=== PATIENT | female | born 1965 | race Caucasian/White ===

== ENCOUNTER → 2016-04-27 | Outpatient (CLI) | payer MEDICAID, OTHER ==
--- NOTE | 2016-04-27 13:57 | WOMENS IMAGING REPORT ---
EXAM DESCRIPTION: BILAT SCREENING MAMMO W/CAD COMPLETED DATE/TIME: 04/27/2016 8:37 am REASON FOR STUDY: Z12.31 Z12.31 ENCNTR SCREEN MAMMOGRAM FOR MALIGNANT NEOPLASM OF GAVIN COMPARISON: 2011 to 2014 TECHNIQUE: Standard craniocaudal and mediolateral oblique views of each breast recorded using digita l acquisition. LIMITATIONS: None. FINDINGS: No masses, calcifications or architectural distortion. No areas of suspicion. Read with the assistance of CAD. .[facility] - R2 Cenova Version 1.3 .[facility] - R2 Cenova Version 1.3 .[facility] - R2 Cenova Version 2.4 .[facility] [place] - R2 Cenova Version 2.4 .[facility] - R2 Marshmallow Machine Worker Version 9.2 BREAST DENSITY: b. There are scattered areas of fibroglandular density. BIRAD: 1 NEGATIVE RECOMMENDATION: ROUTINE SCREENING COMMENT: PATIENT NOTIFIED BY LETTER. The [employer] recommends an annual screening mammogram for women aged 40 years or over. Each patient will receive a reminder prior to the anniversary date of her mammogram. The [employer] (ACR) has developed recommendations for screening MRI of the breast s in certain patient populations, to be used in conjunction with mammography. Breast MRI surveillanc e may be appropriate for women with more than 20% lifetime risk of developing breast cancer as deter mined by genetic testing, significant family history of the disease, or history of mantle radiation f or Hodgkins Disease. ACR Practice Guidelines 2008. TECHNICAL DOCUMENTATION: FINDING NUMBER: (1) ASSESSMENT: (1) JOB ID: [id number] 1,2,3 [employer]- All Rights Reserved
== END ==
LOC: WI 07:39
PROVIDERS: ATTEND Nurse Practitioner Family
DX: Z12.31 Encounter for screening mammogram for malignant neoplasm of breast (principal)
CPT/HCPCS: 77067; G0202

== ENCOUNTER → 2018-02-08 | Outpatient (CLI) | payer MEDICAID, OTHER ==
--- NOTE | 2018-02-08 15:22 | WOMENS IMAGING REPORT ---
EXAM DESCRIPTION: BILAT SCREENING MAMMO W/CAD COMPLETED DATE/TIME: 02/08/2018 2:47 pm REASON FOR STUDY: ROUTINE SCREENING Z12.31 Z12.31 ENCNTR SCREEN MAMMOGRAM FOR MALIGNANT NEOPLASM OF GAVIN COMPARISON: 04/27/2016 and 02/22/2015. TECHNIQUE: Standard craniocaudal and mediolateral oblique views of each breast recorded using digita l acquisition. LIMITATIONS: None. FINDINGS: No masses, calcifications or architectural distortion. No areas of suspicion. Read with the assistance of CAD. .[facility] - R2 Cenova Version 1.3 .[facility] - R2 Cenova Version 1.3 .[facility] - R2 Cenova Version 2.4 .[facility] - R2 Cenova Version 2.4 .[facility] - R2 Cement Kiln Operator Version 9.2 IMPRESSION: NORMAL MAMMOGRAM. BIRADS 1. BREAST DENSITY: c. The breasts are heterogeneously dense, which may obscure small masses. BIRAD: 1 NEGATIVE RECOMMENDATION: ROUTINE SCREENING COMMENT: The patient has been notified of the results by letter per MQSA requirements. Additional no tification policies are in place for contacting patient with suspicious or incomplete findings. Quality ID #[id number]: The [employer] recommends an annual screening mammogram for women aged 40 years or over. This facility utilizes a reminder system to ensure that all patients receive reminder letters, and/or direct phone calls for appointments. This includes reminders for routine scr eening mammograms, diagnostic mammograms, or other Breast Imaging Interventions when appropriate. Th is patient will be placed in the appropriate reminder system. The [employer] (ACR) has developed recommendations for screening MRI of the breast s in certain patient populations, to be used in conjunction with mammography. Breast MRI surveillanc e may be appropriate for women with more than 20% lifetime risk of developing breast cancer as deter mined by genetic testing, significant family history of the disease, or history of mantle radiation f or Hodgkins Disease. ACR Practice Guidelines 2008. TECHNICAL DOCUMENTATION: FINDING NUMBER: (1) ASSESSMENT: (1) JOB ID: [id number] [employer]- All Rights Reserved Reading location - IP/workstation name: [email or web address]
== END ==
LOC: WI 14:31
PROVIDERS: ATTEND Family Medicine
DX: Z12.31 Encounter for screening mammogram for malignant neoplasm of breast (principal)
CPT/HCPCS: 77067

== ENCOUNTER 2018-04-15 15:46 | Emergency (ER) | payer OTHER ==
--- NOTE | 2018-04-15 17:09 | ER Document Report ---
ED Medical Screen (RME) - General Chief Complaint: Abscess Stated Complaint: VAGINAL PAIN Time Seen by Provider: 04/15/18 17:08 Mode of Arrival: Ambulatory Information source: Patient Notes: Patient complains of swelling to vaginal area that started yesterday. Patient denies any fever. I have greeted and performed a rapid initial assessment of this patient. A comprehensive ED assessment and evaluation of the patient, analysis of test results and completion of the medical decision making process will be conducted by additional ED providers. TRAVEL OUTSIDE OF THE [place] IN LAST 30 DAYS: No Past Medical History - Social History Chew tobacco use (# tins/day): No Frequency of alcohol use: None Drug Abuse: None Renal/ Medical History: Denies: Hx Peritoneal Dialysis Physical Exam - Vital signs Vitals: Temp Pulse Resp BP Pulse Ox 98.9 F 76 16 126/79 H 100 04/15/18 16:06 04/15/18 16:06 04/15/18 16:06 04/15/18 16:06 04/15/18 16:06 - General General appearance: Appears well, Alert In distress: None Course - Vital Signs Vital signs: Temp Pulse Resp BP Pulse Ox 98.9 F 76 16 126/79 H 100 04/15/18 16:06 04/15/18 16:06 04/15/18 16:06 04/15/18 16:06 04/15/18 16:06 Doctor's Discharge - Discharge Referrals: REJI LEMUS MD [Primary Care Provider] - Follow up as needed
--- NOTE | 2018-04-15 22:24 | ER Document Report ---
ED General - General Mode of Arrival: Ambulatory TRAVEL OUTSIDE OF THE [place] IN LAST 30 DAYS: No - General Chief Complaint: Abscess Stated Complaint: VAGINAL PAIN Time Seen by Provider: 04/15/18 17:08 Notes: 48-year-old female presents to the emergency department with concern for swelling in her vaginal area. She states that she noticed yesterday when going to the bathroom and it was felt spongy. She said it resolved last night but then it recurred this morning. While in the emergency department she said symptoms improved again. She states that she did have a recent illness over [place] for which she was coughing a lot and still has a residual cough. She is postmenopausal. She did note that she did have a little bit of bleeding. She complains of difficulty with urination and urgency. She complains of minor cramping. She complains of problems with a BM. She denies any fever, chills, shortness of breath, chest pain, abdominal pain. (MAURI GILES) - Related Data Allergies/Adverse Reactions: sulfamethoxazole [From ] Adverse Reaction (Verified 04/15/18 17:10) trimethoprim [From Decra] Adverse Reaction (Verified 04/15/18 17:10) Past Medical History - General Information source: Patient - Social History Smoking Status: Never Smoker Chew tobacco use (# tins/day): No Frequency of alcohol use: None Drug Abuse: None Family History: None Patient has suicidal ideation: No Patient has homicidal ideation: No Renal/ Medical History: Denies: Hx Peritoneal Dialysis Review of Systems - Review of Systems Constitutional: See HPI EENT: See HPI Cardiovascular: See HPI Gastrointestinal: See HPI Genitourinary: See HPI Female Genitourinary: See HPI Musculoskeletal: No symptoms reported Skin: No symptoms reported Hematologic/Lymphatic: No symptoms reported Neurological/Psychological: No symptoms reported Physical Exam - Vital signs Vitals: Temp Pulse Resp BP Pulse Ox 98.9 F 76 16 126/79 H 100 04/15/18 16:06 04/15/18 16:06 04/15/18 16:06 04/15/18 16:06 04/15/18 16:06 - Notes Notes: Patient requested female examiner. I requested for Dr. Florence to perform speculum exam. She agreed. Please see her note for details. (MAURI GILES) Course - Re-evaluation Re-evalutation: 04/15/18 22:25 52-year-old female with no past medical history presents for complaints of concerns for a growth at the opening of the vagina. That she noticed it yesterday after using the bathroom and that the symptoms partially resolved overnight. This morning she realized that it grew again and while she been sitting in the ER it has gone down. I asked Dr. Florence to perform pelvic exam as patient was uncomfortable with the male performing it. Per Dr. Florence, and obvious uterine prolapse was present. Plan is to discharge with referral to women's health. (MAURI GILES) 04/16/18 02:29 I personally evaluated the patient and agree with the treatment and disposition. (HERNANDO FLORENCE) - Vital Signs Vital signs: Temp Pulse Resp BP Pulse Ox 97.9 F 17 L 18 131/82 H 97 04/15/18 23:07 04/15/18 23:07 04/15/18 23:07 04/15/18 23:07 04/15/18 23:07 - Laboratory Laboratory results interpreted by me: 04/15/18 18:03 POC Glucose 65 L Discharge - Discharge Clinical Impression: Prolapsed uterus Condition: Stable Disposition: HOME, SELF-CARE Additional Instructions: Pelvic organ prolapse is a condition that only affects women. It happens when tissues that support the organs in the lower belly relax. These tissues are sometimes called the "pelvic floor." When they relax too much, the organs drop down and press against or bulge into the vagina. If the bladder bulges into the vagina, doctors call this problem "cystocele." If the rectum bulges into the vagina, they call it "rectocele." Uterine prolapse means the uterus has bulged into the vagina Some things can increase a woman's risk of having pelvic organ prolapse. They include , obesity, and older age. What are the symptoms of pelvic organ prolapse? Many women with this problem have no symptoms. But some women with pelvic organ prolapse have symptoms that include: -Fullness or pressure in the pelvis or vagina -An aching feeling in the pelvis -A bulge in the vagina or coming out of the vagina -Leaking urine when they laugh, cough, or sneeze -Needing to urinate all of a sudden When they use the toilet, some women need to press on the bulge in the vagina with a finger to get out all their urine or to finish a bowel movement. Is there anything I can do on my own to feel better? Yes. Some women feel better if they do pelvic muscle exercises. These exercises strengthen the muscles that control the flow of urine and bowel movements. They are also known as "Kegel" exercises. Your nurse or doctor can teach you how to do them or refer you to a physical therapist who specializes in pelvic floor problems. How is pelvic organ prolapse treated? Women who have no symptoms or who are not bothered by their symptoms do not need treatment. For women with symptoms that bother them, doctors suggest different treatments, including: -Pelvic floor muscle exercises Patients work with a physical therapist for 8 to 12 weeks to strengthen the pelvic muscles. -A vaginal pessary This device fits inside a woman's vagina to support the bladder and push it back into place. Pessaries come in different shapes and sizes. -Surgery A surgeon can move dropped organs back where they belong and strengt hen the tissues that keep them in place. Women should have this type of surgery only if they are done having children. Can pelvic organ prolapse be prevented? You can reduce your chances of pelvic organ prolapse if you: -Lose weight if you are overweight -Get treated for constipation if you are constipated -Avoid activities that require you to lift heavy things Referrals: REJI LEMUS MD [NO LOCAL MD] - Follow up as needed KYLE BELTRAN MD [ACTIVE STAFF] - Follow up as needed
[2018-04-15 23:09] VITALS: BP 131/82
== END 2018-04-15 23:10 | disposition home or self-care (01) ==
LOC: ER 15:46
DX: N81.4 Uterovaginal prolapse, unspecified (principal); R05 Cough; R39.15 Urgency of urination; R58 Hemorrhage, not elsewhere classified
CPT/HCPCS: 82962; 99283

== ENCOUNTER → 2019-04-03 | Outpatient (CLI) | payer MEDICAID, OTHER ==
--- NOTE | 2019-04-03 15:19 | WOMENS IMAGING REPORT ---
EXAM DESCRIPTION: BILAT SCREENING MAMMO W/CAD COMPLETED DATE/TIME: 04/03/2019 10:09 am REASON FOR STUDY: Z12.31 SCREENING MAMMO Z12.31 ENCNTR SCREEN MAMMOGRAM FOR MALIGNANT NEOPLASM OF B RE Z78.0 ASYMPTOMATIC MENOPAUSAL STATE COMPARISON: Multiple since 2011 EXAM PARAMETERS: Standard craniocaudal and mediolateral oblique views of each breast recorded using digital acquisition. Read with the assistance of CAD. .[facility] - [employer] Solid [employer]ellant Processor Version 9.2 LIMITATIONS: None. FINDINGS: No suspicious masses, suspicious calcifications or architectural distortion. No areas of c oncern. IMPRESSION: Negative MAMMOGRAM. BIRADS 1 BREAST DENSITY: c. The breasts are heterogeneously dense, which may obscure small masses. BIRAD: ASSESSMENT: 1 NEGATIVE RECOMMENDATION: ROUTINE SCREENING Please continue yearly bilateral screening mammography/tomosynthesis in March 2020 COMMENT: The patient has been notified of the results by letter per MQSA requirements. Additional no tification policies are in place for contacting patient with suspicious or incomplete findings. Quality ID #[id number]: The [employer] recommends an annual screening mammogram for women aged 40 years or over. This facility utilizes a reminder system to ensure that all patients receive reminder letters, and/or direct phone calls for appointments. This includes reminders for routine scr eening mammograms, diagnostic mammograms, or other Breast Imaging Interventions when appropriate. Th is patient will be placed in the appropriate reminder system. TECHNICAL DOCUMENTATION: FINDING NUMBER: (1) ASSESSMENT: (1) JOB ID: [id number] [employer]- All Rights Reserved Reading location - IP/workstation name: [email or web address]
== END ==
LOC: WI 09:30
PROVIDERS: ATTEND Physician Assistant
DX: Z12.31 Encounter for screening mammogram for malignant neoplasm of breast (principal); Z78.0 Asymptomatic menopausal state
CPT/HCPCS: 77067

== ENCOUNTER → 2019-05-01 | Outpatient (CLI) | payer OTHER ==
--- NOTE | 2019-05-01 14:19 | WOMENS IMAGING REPORT ---
EXAM DESCRIPTION: BONE DENSITY HIP/SPINE COMPLETED DATE/TIME: 05/01/2019 9:47 am REASON FOR STUDY: Z78.0 BONE DENSITY Z78.0 ASYMPTOMATIC MENOPAUSAL STATE COMPARISON: 09/29/2013 TECHNIQUE: Dual-Energy X-ray Absorptiometry (DEXA) of the AP Spine and Hip. LIMITATIONS: None. FINDINGS: LUMBAR SPINE: The bone mineral density (BMD) measured from L1-L4 in the AP projection correlates with a T-score of -1.2, which is osteopenia as defined by the World Health Organization. BMD Change vs Baseline: +7.8% HIP: The bone mineral density (BMD) measured in the left hip correlates with a T-score of -1.1 in the femo ral neck, which is osteopenia as defined by the World Health Organization. BMD Change vs Baseline: +0.7% 10 year Fracture Risk Assessment: Major Osteoporotic Fracture: 5.4% Hip Fracture: 0.3% IMPRESSION: 1. LUMBAR SPINE WHO CLASSIFICATION: Osteopenia 2. HIP WHO CLASSIFICATION: Osteopenia OVERALL ASSESSMENT: WHO CLASSIFICATION: Osteopenia COMMENT: The World Health Organization defines low BMD as follows: T-score: Normal: Greater than -1.0 Osteopenia: Between -1.0 and -2.5 Osteoporosis: Less than -2.5 without fractures Established osteoporosis: Less than -2.5 with fractures In general, you may wish to consider: Diagnosis Treatment Follow-up DEXA Normal BMD Prevention 2-3 years Osteopenia Prevention/Therapy 1-2 years Osteoporosis Therapy Yearly TECHNICAL DOCUMENTATION: JOB ID: [id number] [employer]- All Rights Reserved Reading location - IP/workstation name: [email or web address]
== END ==
LOC: WI 08:50
PROVIDERS: ATTEND Physician Assistant
DX: M85.88 Other specified disorders of bone density and structure, other site (principal); Z78.0 Asymptomatic menopausal state
CPT/HCPCS: 77080

== ENCOUNTER → 2020-04-09 | Outpatient (CLI) | payer OTHER ==
--- NOTE | 2020-04-09 11:45 | WOMENS IMAGING REPORT ---
EXAM DESCRIPTION: BILAT SCREENING MAMMO W/CAD IMAGES COMPLETED DATE/TIME: 04/09/2020 9:35 am REASON FOR STUDY: ROUTINE BILATERAL SCREENING;Z12.31 Z12.31 ENCNTR SCREEN MAMMOGRAM FOR MALIGNANT N EOPLASM OF GAVIN COMPARISON: Priors dating back to 2012 EXAM PARAMETERS: Standard craniocaudal and mediolateral oblique views of each breast recorded using digital acquisition. Read with the assistance of CAD. .[employer] - [employer] Utility Repairer Version 9.2 LIMITATIONS: None. FINDINGS: No suspicious masses, suspicious calcifications or architectural distortion. No areas of c oncern. IMPRESSION: NEGATIVE MAMMOGRAM. BIRADS 1 BREAST DENSITY: b. There are scattered areas of fibroglandular density. BIRAD: ASSESSMENT: 1 NEGATIVE RECOMMENDATION: ROUTINE SCREENING COMMENT: The patient has been notified of the results by letter per MQSA requirements. Additional no tification policies are in place for contacting patient with suspicious or incomplete findings. Quality ID #[id number]: The [employer] [employer] recommends an annual screening mammogram for women aged 40 years or over. This facility utilizes a reminder system to ensure that all patients receive reminder letters, and/or direct phone calls for appointments. This includes reminders for routine scr eening mammograms, diagnostic mammograms, or other Breast Imaging Interventions when appropriate. Th is patient will be placed in the appropriate reminder system. TECHNICAL DOCUMENTATION: FINDING NUMBER: (1) ASSESSMENT: (1) JOB ID: [id number] [employer]- All Rights Reserved Reading location - IP/workstation name: [email or web address]
== END ==
LOC: WI 09:15
PROVIDERS: ATTEND Physician Assistant
DX: Z12.31 Encounter for screening mammogram for malignant neoplasm of breast (principal)
CPT/HCPCS: 77067